=== PATIENT | female | born 1960 | race Caucasian/White ===

== ENCOUNTER 2017-06-27 17:25 | Emergency (ER) | payer OTHER ==
--- NOTE | 2017-06-27 19:05 | EDM.PDOC ---
ED HPI GENERAL MEDICAL PROBLEM - General Chief Complaint: Lower Extremity Injury/Pain Stated Complaint: KNEE TROUBLE Time Seen by Provider: 06/27/17 18:00 Source of Information: Reports: Patient History Limitations: Reports: No Limitations - History of Present Illness INITIAL COMMENTS - FREE TEXT/NARRATIVE: 57-year-old female presents the ED with an acute injury to her left knee. She states that while at work today she was walking fairly briskly and made a turn she believes to the right. In between her offices. She developed sudden onset of severe pain and a popping sensation left anterior medial knee that nearly dropped her to the floor. Subsequently she is having a lot of trouble weightbearing and certain movements make the pain much worse. She states when she is sitting in elevated she is pain-free. She's had no previous knee problems or knee surgeries. Onset: Today Onset Date: 06/27/17 Onset Time: 13:00 Duration: Hour(s): Location: Reports: Lower Extremity, Left (Left knee.) Quality: Reports: Ache, Sharp, Stabbing, Other (Can barely bear weight due to the pain.) Severity: Moderate (When there is no weight on the knee she has no pain) Improves with: Reports: Rest (An elevation and nonweightbearing) Worsens with: Reports: Other (Weightbearing and certain movements like turning to the right.) Context: Denies: Activity, Exercise, Lifting, Sick Contact, Trauma Associated Symptoms: Denies: No Other Symptoms, Confusion, Chest Pain, Cough, cough w sputum, Diaphoresis, Fever/Chills, Headaches, Loss of Appetite, Malaise , Nausea/Vomiting, Seizure, Shortness of Breath, Syncope Treatments DENTAL OFFICE COORDINATOR: Reports: Other (see below) Left Knee Pain Score (Numeric/FACES): 5 - Related Data Allergies Allergy/AdvReac Type Severity Reaction Status Date / Time meperidine HCl [From Demerol] Allergy Nausea and Verified 06/27/17 17:38 Vomiting Home Meds: Home Meds Cetirizine [ZyrTEC] 10 mg PO DAILY 09/04/13 [History] Levothyroxine 75 mcg PO DAILY 09/04/13 [History] Aspirin [[place] Aspirin] 81 mg PO DAILY 06/27/17 [History] Losartan/Hydrochlorothiazide [Losartan-HCTZ 100-25 MG] 1 tab PO DAILY 06/27/17 [ History] Potassium Chloride 20 meq PO DAILY 06/27/17 [History] Past Medical History HEENT History: Reports: Impaired Vision (Wears eyeglasses.) Cardiovascular History: Reports: High Cholesterol, Hypertension Endocrine/Metabolic History: Reports: Hypothyroidism (Is on levothyroxine supplement) Dermatologic History: Reports: Other (See Below) Other Dermatologic History: hives - Past Surgical History Musculoskeletal Surgical History: Reports: Hip Replacement (Right hip replacement), Other (See Below) Other Musculoskeletal Surgeries/Procedures:: left ankle fixation, right wrist fixation Social & Family History - Tobacco Use Smoking Status *Q: Never Smoker - Caffeine Use Caffeine Use: Reports: Soda - Alcohol Use Days Per Week of Alcohol Use: 0 - Recreational Drug Use Recreational Drug Use: No - Living Situation & Occupation Living situation: Reports: Occupation: Employed Social History Comment: 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 [place] Review of Systems - Review of Systems Review Of Systems: See Below Constitutional: Reports: No Symptoms Eyes: Reports: No Symptoms Ears: Reports: No Symptoms Nose: Reports: No Symptoms Mouth/Throat: Reports: No Symptoms Respiratory: Reports: No Symptoms Cardiovascular: Reports: No Symptoms GI/Abdominal: Reports: No Symptoms Genitourinary: Reports: No Symptoms Musculoskeletal: Reports: Joint Pain (Left knee pain.) Skin: Reports: No Symptoms Neurological: Reports: No Symptoms Psychiatric: Reports: No Symptoms ED EXAM, GENERAL - Physical Exam Exam: See Below Exam Limited By: No Limitations General Appearance: Alert, WD/WN, No Apparent Distress Peripheral Pulses: 3+: Posterior Tibial (L), Posterior Tibial (R), Dorsalis Pedis (L), Dorsalis Pedis (R) Extremities: Other (Examination was limited to her left knee. She does have a small effusion evident on examination. Patellofemoral crepitus or pain on movement of the patella. In along the medial aspect of the knee joint. Also pain at the Theodore answering a bursa insertion site. Examination reveals cruciate ligaments to be intact. Also MCL is intact both at full extension and 30 flexion. She does have a positive Hattie sign on stressing the medial meniscus. This was in the prone position with the knee flexed at 90 with a little bit of my weight on her foot.) Neurological: Alert, Oriented, CN II-XII Intact, Normal Cognition Psychiatric: Normal Affect, Normal Mood Skin Exam: Warm, Dry, Intact, Normal Color, No Rash Course - Vital Signs Last Recorded V/S: Last Vital Signs Temp 36.6 C 06/27/17 17:35 Pulse 100 06/27/17 17:35 Resp 18 06/27/17 17:35 BP 167/84 H 06/27/17 17:35 Pulse Ox 100 06/27/17 17:35 - Orders/Labs/Meds Orders: Active Orders 24 hr Category Date Time Status Knee 3V Lt [CR] Stat Exams 06/27/17 18:14 Taken - Radiology Interpretation Free Text/Narrative:: 57-year-old female presents to the ED with acute onset of a pain in her left knee that started with a sudden popping sensation and then gradually worsening pain with weightbearing this afternoon. 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 She states was walking briskly in her hallway as per her usual when she felt the sudden onset of severe pain and a popping sensation in her left knee. He nearly dropped her to the floor. Subsequently she's been hobbling around. Since getting home tonight she is elevated and iced it but the pain is getting worse. She is walking patent leg. Examination in the ED reveals a mild effusion suggesting internal derangement of the knee. Stressing the knee causes no ligamentous laxity. She does have a positive Hattie sign suggesting torn medial meniscus. X-ray of the knee done shows normal joint spaces without much in the way of degenerative changes and there were no loose bodies. She'll be placed in a short knee immobilizer she has a cane that she will use to help keep her balance and keep her from falling. She can hopes to continue to work if she can tolerate the weightbearing. She will follow-up with Dr. Kim or Dr. Lauren in regards to assessment and hopefully arthroscopy to repair the suspect torn medial meniscus. She is okay with using Motrin or Aleve for pain if needed. Departure - Departure Time of Disposition: 19:01 Disposition: Home, Self-Care 01 Condition: Fair Clinical Impression: Internal derangement of left knee involving anterior horn of medial meniscus - Discharge Information Referrals: Billy Lynn MD [Primary Care Provider] - Forms: ED Department Discharge Additional Instructions: Evaluation the emergency room today in regards to acute onset of severe anterior medial left knee pain while at work today. Walking briskly with the development of sudden onset of severe pain left anterior medial knee that nearly dropped to the floor. Subsequently there clinically is a small effusion within the knees indicating internal derangement. X-ray of the knee is completely normal. Examination suggests that there is likely a tear of the anterior horn of the medial meniscus. Pain will improve as the swelling inside the knee gets better but the torn meniscus leaves you at risk of continuous catching clicking or near falls when the pain hits when you go walking and pivoting or turning quickly to the right. It is my suggestion that you follow- up with orthopedic surgeon to have arthroscopy of the knee done and removal of the torn cartilage. As I discussed with Dr. Kim he could probably scope her knee on Sunday next week. He states please make a follow-up appointment with his office tomorrow ideally him or his surgical resident Gabriella Llamas could see you on Sunday morning and arrange booking for surgery on Sunday. His number for his office is [phone]. May take Motrin 600 mg every 6 hours or Aleve 2 tablets every 8 hours for pain relief left knee if needed. Knee immobilizer on during the day and off at night. May continue to try and work although you may need a gait aids such as a cane to get through the next few days. Kenny I would suggest elevating the knee as much as possible ice pack to the knee one half hour out of every 3-4 hours for the next couple of days. - My Orders Last 24 Hours: My Active Orders 06/27/17 18:14 Knee 3V Lt [CR] Stat - Assessment/Plan Last 24 Hours: My Active Orders 06/27/17 18:14 Knee 3V Lt [CR] Stat
--- NOTE | 2017-06-28 07:06 | CR ---
Left knee: AP, lateral and sunrise patellar views of the left knee were obtained. Mild lateral joint space narrowing is seen within the left knee involving the patellofemoral joint. Small degenerative cyst is seen within the subchondral bone within the lateral patellofemoral joint within the femur. Medial and lateral joint compartments are maintained in height. No joint effusion is seen. No acute fracture or other bony abnormality is seen. Impression: 1. Degenerative change within the lateral patellofemoral joint as noted above. 2. Left knee study is otherwise unremarkable. Diagnostic code #2
== END 2017-06-27 19:17 | disposition home or self-care (01) ==
LOC: JD.ED 17:25
DX: M23.312 Other meniscus derangements, anterior horn of medial meniscus, left knee (principal); I10 Essential (primary) hypertension; E03.9 Hypothyroidism, unspecified; Z88.8 Allergy status to other drugs, medicaments and biological substances; Z79.899 Other long term (current) drug therapy
CPT/HCPCS: 73562-26-LT; 73562-LT; 99283

== ENCOUNTER 2022-05-09 05:24 | Emergency (ER) | payer OTHER | END 2022-05-09 06:55 | disposition home or self-care (01) | LOC: JD.ED 05:24 | DX: M25.572 Pain in left ankle and joints of left foot (principal); M25.562 Pain in left knee; E03.9 Hypothyroidism, unspecified; I10 Essential (primary) hypertension; Z79.899 Other long term (current) drug therapy; Z79.82 Long term (current) use of aspirin; Z88.8 Allergy status to other drugs, medicaments and biological substances | CPT/HCPCS: 73560-26-LT; 73560-LT; 73620-26-LT; 73620-LT; 99283 ==

== ENCOUNTER 2024-02-10 06:35 | Emergency (ER) | payer OTHER, MEDICARE ==
[2024-02-10] MEDS: Sodium Chloride 0.9% 10 ML Syringe FLUSH PRN (07:37)
[2024-02-10] MEDS: Iopamidol 612 MG/ML 100 ML Bottle IVPUSH ONE (08:08)
[2024-02-10] MEDS: Sodium Chloride 0.9% 10 ML Syringe FLUSH ONE (08:08)
[2024-02-10] MEDS: Doxycycline Monohydrate 100 MG Cap PO ONE (09:27)
== END 2024-02-10 09:32 | disposition home or self-care (01) ==
LOC: JD.ED 06:35
DX: S22.42XA Multiple fractures of ribs, left side, initial encounter for closed fracture (principal); J90 Pleural effusion, not elsewhere classified; J06.9 Acute upper respiratory infection, unspecified; I10 Essential (primary) hypertension; E03.9 Hypothyroidism, unspecified; Z79.899 Other long term (current) drug therapy; Z79.890 Hormone replacement therapy; Z79.82 Long term (current) use of aspirin; Z88.8 Allergy status to other drugs, medicaments and biological substances; W19.XXXA Unspecified fall, initial encounter
CPT/HCPCS: 71260; 99283; A9270; Q9967